=== PATIENT | female | born 1990 | race Two or more races ===

== ENCOUNTER 2021-06-10 15:21 | Emergency (ER) | payer OTHER ==
[~2021-06-10] VITALS: Ht 160 cm; Wt 59.0 kg
[2021-06-10] MEDS ORDERED: SYNTHROID (16:41)
[2021-06-10] MEDS ORDERED: TYLENOL (16:41)
== END 2021-06-10 17:32 | disposition home or self-care (01) ==
LOC: ER 15:21
DX: K64.8 Other hemorrhoids (principal); O26.891 Other specified pregnancy related conditions, first trimester; J45.998 Other asthma; Z3A.01 Less than 8 weeks gestation of pregnancy

== ENCOUNTER 2021-06-23 11:35 | Outpatient (CLI) | payer OTHER ==
[~2021-06-23 11:35] MED LIST: SYNTHROID; TYLENOL
== END 2021-06-23 12:47 | disposition home or self-care (01) ==
LOC: NST 11:35
PROVIDERS: ATTEND Obstetrics & Gynecology Maternal & Fetal Medicine
DX: Z34.83 Encounter for supervision of other normal pregnancy, third trimester (principal)

== ENCOUNTER → 2021-06-26 | Outpatient (CLI) | payer OTHER | END | disposition home or self-care (01) | LOC: OBS/DEL 15:58 → NST 15:58 | PROVIDERS: ATTEND Obstetrics & Gynecology Maternal & Fetal Medicine | DX: Z34.83 Encounter for supervision of other normal pregnancy, third trimester (principal) ==

== ENCOUNTER 2021-06-28 14:03 | Outpatient (CLI) | payer OTHER ==
[2021-06-29] MEDS ORDERED: PRENATAL TABLE1 EAC1 PO (20:14)
[2021-06-29] MEDS ORDERED: SYNTHROID175 MCG PO (20:15)
[2021-06-29] MEDS ORDERED: TYLENOL325 MG PO (20:16)
[2021-06-29] MEDS ORDERED: ACETAMINOPHEN500 M2 (20:55)
== END 2021-06-28 14:35 | disposition home or self-care (01) ==
LOC: NST 14:03
PROVIDERS: ATTEND Obstetrics & Gynecology
DX: Z34.83 Encounter for supervision of other normal pregnancy, third trimester (principal)

== ENCOUNTER 2021-06-29 11:20 | Inpatient (IN) | payer OTHER ==
[~2021-06-29] VITALS: Ht 160 cm; Wt 61.2 kg
[2021-06-29] MEDS ORDERED: PRENATAL TABLE1 EAC1 PO (20:14)
[2021-06-29] MEDS ORDERED: SYNTHROID175 MCG PO (20:15)
[2021-06-29] MEDS ORDERED: TYLENOL325 MG PO (20:16)
[2021-06-29] MEDS ORDERED: ACETAMINOPHEN500 M2 (20:55)
== END 2021-07-04 09:43 | disposition home or self-care (01) | DRG 833 ==
LOC: LAB 11:20 → LDR 17:01 → LAB 17:01 → LDR 17:03
PROVIDERS: ADMIT Obstetrics & Gynecology; ATTEND Obstetrics & Gynecology
PROC: 4A1HXFZ Monitoring of Products of Conception, Cardiac Rhythm, External Approach (ICD-10-PCS; principal; 2021-06-29)
PROC: BT43ZZZ Ultrasonography of Bilateral Kidneys (ICD-10-PCS; 2021-07-03)
DX: O23.03 Infections of kidney in pregnancy, third trimester (principal); Z3A.29 29 weeks gestation of pregnancy; Z20.822 Contact with and (suspected) exposure to COVID-19

== ENCOUNTER 2021-07-07 16:15 | Outpatient (CLI) | payer OTHER ==
[~2021-07-07 16:15] MED LIST changes: +ACETAMINOPHEN500 M2; +PRENATAL TABLE1 EAC1 PO; +SYNTHROID175 MCG PO; +TYLENOL325 MG PO
== END 2021-07-07 16:23 | disposition home or self-care (01) ==
LOC: LAB 16:15
PROVIDERS: ATTEND Obstetrics & Gynecology
DX: Z34.83 Encounter for supervision of other normal pregnancy, third trimester (principal)

== ENCOUNTER 2021-08-03 13:30 | Outpatient (CLI) | payer OTHER | END 2021-08-03 14:39 | disposition home or self-care (01) | LOC: NST 13:30 | PROVIDERS: ATTEND Obstetrics & Gynecology Maternal & Fetal Medicine | DX: Z34.83 Encounter for supervision of other normal pregnancy, third trimester (principal) ==

== ENCOUNTER 2021-08-10 14:21 | Outpatient (CLI) | payer OTHER | END 2021-08-10 15:52 | disposition home or self-care (01) | LOC: NST 14:21 | PROVIDERS: ATTEND Obstetrics & Gynecology Maternal & Fetal Medicine | DX: Z34.83 Encounter for supervision of other normal pregnancy, third trimester (principal) ==

== ENCOUNTER 2021-08-28 09:03 | Outpatient (CLI) | payer OTHER | END 2021-08-28 10:00 | disposition home or self-care (01) | LOC: NST 09:03 | PROVIDERS: ATTEND Obstetrics & Gynecology | DX: Z34.83 Encounter for supervision of other normal pregnancy, third trimester (principal) ==

== ENCOUNTER 2021-08-30 05:39 | Inpatient (IN) | payer OTHER ==
[~2021-08-30] VITALS: Ht 160 cm; Wt 3.2 kg
== END 2021-09-02 14:17 | disposition home or self-care (01) | DRG 788 ==
LOC: OB/GYN 05:39 → LDR 05:39 → OB/GYN 05:39
PROVIDERS: ADMIT Obstetrics & Gynecology Maternal & Fetal Medicine; ATTEND Obstetrics & Gynecology
PROC: 4A1HXCZ Monitoring of Products of Conception, Cardiac Rate, External Approach (ICD-10-PCS; 2021-08-30)
PROC: 10D00Z1 Extraction of Products of Conception, Low, Open Approach (ICD-10-PCS; principal; 2021-08-30 16:00)
DX: O62.1 Secondary uterine inertia (principal); Z3A.39 39 weeks gestation of pregnancy; Z37.0 Single live birth; Z20.822 Contact with and (suspected) exposure to COVID-19

== ENCOUNTER 2021-09-24 13:37 | Emergency (ER) | payer OTHER ==
[~2021-09-24] VITALS: Ht 160 cm; Wt 53.1 kg
== END 2021-09-24 15:27 | disposition home or self-care (01) ==
LOC: ER 13:37
DX: K64.4 Residual hemorrhoidal skin tags (principal)